=== PATIENT | male | born 1955 | race Caucasian/White ===

== ENCOUNTER → 2022-04-21 08:17 | Outpatient (CLI) | payer MEDICARE, SELFPAY ==
--- NOTE | ~2022-04-21 | CT_ITS ---
EXAMINATION: CT lung screening DATE: 04/21/2022 08:31 INDICATION: History of smoking with tobacco dependence. TECHNIQUE: Computed tomography (CT) of the chest was performed without intravenous contrast. The dose -length product was 137.41 mGy-cm. Automated exposure control and iterative reconstruction technique were employed. COMPARISON: CT chest dated 02/10/2013 FINDINGS: No thoracic lymphadenopathy. Mild atherosclerosis of the coronary arteries. Heart size norm al. No significant pleural or pericardial effusion. There are calcified granulomas of the lung and sp gm. Stable 3 mm fissural nodule on the right, image 35. Stable 3 mm right lower lobe nodule, image 97. There is a 2 mm fissural nodule on the left, likely benign. There are healed left seventh and eig hth rib fractures. There are a few clustered nodules in the perifissural aspect of the right lung reese suring 1 mm. IMPRESSION: 1. Lung-RADS category 2: Benign appearance or behavior. Continue annual screening with noncontrast lo w-dose chest CT in 12 months. Reviewed, dictated and finalized at location [facility] IMPRESSION: 1. Lung-RADS category 2: Benign appearance or behavior. Continue annual screeni ng with noncontrast low-dose chest CT in 12 months.
== END ==
PROVIDERS: PCP Internal Medicine; Visit Provider Internal Medicine
DX: Z12.2 Encounter for screening for malignant neoplasm of respiratory organs (principal); F17.210 Nicotine dependence, cigarettes, uncomplicated
CPT/HCPCS: 71271

== ENCOUNTER 2022-06-05 00:49 | Day surgery (SDC) | payer MEDICARE, SELFPAY ==
[2022-05-22 13:44] VITALS: BMI 29.9
[2022-06-05 06:45] VITALS: BP 134/76; PULSE 80; RESP 20; TEMP 36.1; O2SAT 100; BMI 29.2
[2022-06-05] MEDS: LACTATED RINGERS 1,000 ML 150 ML IV CONT (06:48)
[2022-06-05 07:00] LABS: Glucose Point of Care 102 mg/dl (65-105)
--- NOTE | 2022-06-05 07:23 | PM.HPGS ---
History of Present Illness History of Present Illness Consent: Risks, benefits, and alternatives have been discussed and questions answered. Patient agrees to proceed with procedure. Chief complaint: neoplasm screening Narrative: Mehrdad Dalal is a 67 year old male Presents for screening colonoscopy. Patient's current weight appetite and bowel movements are normal. Patient denies abdominal pain. He has had no bleeding. Family history noncontributory. Previous colonoscopy 2008 was unremarkable. Patient does have a history of Cardenas's esophagus. Underlying GE reflux appears stable. Patient does take omeprazole on daily basis. He denies any bleeding. He has had no dysphagia. Review of Systems Review of Systems: Review of systems noncontributory. [facility] Past Medical History Medical History Anxiety Depression Esophageal hernia Kidney disease Solitary lung nodule Surgical History Surgical History History of cataract extraction History of vasectomy Hx of repair of rotator cuff Family History Family History Father Family history of diabetes mellitus in first degree relative Other Carcinoma of colon Social History Social History (Updated 05/07/22 @ 08:21 by Didi Pritchett MA) Smoking packs per day: 1 Smoking cigarettes per day: 20.0 Years smoked: 30 Smoking pack-years: 30.00 Smoking status: Current every day smoker Tobacco type: cigarettes Second hand tobacco smoke exposure: Yes Alcohol intake: current Alcohol use details: drinks 2x yearly Substance use: never Substance use type: does not use Living arrangements: with family Spiritual care concerns: No Meds Home Medications and Allergies Home Medications Medication Instructions Recorded Confirmed Type alprazolam 0.5 mg tablet (Xanax) 0.5 mg PO DAILY PRN anxiety #30 09/18/20 05/22/22 Rx tabs metformin 500 mg tablet 500 mg PO BID #180 tabs 11/29/21 05/22/22 Rx amlodipine 5 mg tablet 5 mg PO DAILY #90 tabs 01/02/22 05/22/22 Rx losartan 50 mg tablet 50 mg PO DAILY #90 tabs 01/31/22 05/22/22 Rx ropinirole 1 mg tablet 1 mg PO QHS #30 tabs 05/07/22 05/22/22 Rx sodium,potassium,mag sulfates 17.5 See Rx Instructions PO .COMPLEX 05/20/22 Rx gram-3.13 gram-1.6 gram oral soln #354 mL (Suprep Bowel Prep Kit) atorvastatin 20 mg tablet 20 mg PO DAILY 05/22/22 05/22/22 History omeprazole 40 mg capsule,delayed 40 mg PO DAILY 05/22/22 05/22/22 History release sertraline 50 mg tablet 50 mg PO DAILY 05/22/22 05/22/22 History timolol maleate 0.5 % eye drops 1 drp LEFT EYE DAILY 05/22/22 05/22/22 History Allergies Allergy/AdvReac Type Severity Reaction Status Date / Time No Known Allergies Allergy Verified 06/05/22 06:44 Vital Signs Vital Signs - 24 hr 06/05/22 06:45 Temperature 96.9 F L Pulse Rate 80 Respiratory Rate 20 Blood Pressure 134/76 Pulse Oximetry 100 Oxygen Delivery Room Air Exam Narrative: Physical exam reveals patient to be alert. Vital signs stable. HEENT exam is unremarkable. Patient is anicteric. Lungs are clear to auscultation and percussion. Heart is without murmur or extra sounds. Abdomen bowel sounds are present soft nontender with no hepatosplenomegaly. Digital external rectal exam normal. Assessment and Plan Assessment and plan (1) Screening for colon cancer: Code(s): Z12.11 - Encounter for screening for malignant neoplasm of colon Status: Acute Assessment and Plan: Patient presents for screening colonoscopy. Last exam many years ago was unremarkable. Plan for screening colonoscopy at this time. (2) Cardenas's esophagus: Code(s): K22.70 - Cardenas's esophagus without dysplasia Status: Acute Assessment and Plan: Patient has a history of Cardenas's esophagus.
--- NOTE | 2022-06-05 07:48 | WPDANESEPPF ---
Anes - Initial Pre Proc Eval Procedure: Operation Date: 06/05/22 08:00 Proposed Procedures p Screening Colonoscopy - Setve Lee MD Date/Time: 06/05/22 07:48 Surgeon: Steve Lee MD Pre Op Diagnosis: neoplasm screening Patient Data Age: 67 Gender: M Height: 1.83 m Weight: 98 kg Last Vital Signs Temp 96.9 F L 06/05/22 06:45 Pulse 80 06/05/22 06:45 Resp 20 06/05/22 06:45 BP 134/76 06/05/22 06:45 Pulse Ox 100 06/05/22 06:45 O2 Del Method Room Air 06/05/22 06:45 Allergies Allergy/AdvReac Type Severity Reaction Status Date / Time No Known Allergies Allergy Verified 06/05/22 06:44 Home Medications Medication Instructions Recorded Confirmed Type alprazolam 0.5 mg tablet (Xanax) 0.5 mg PO DAILY PRN anxiety #30 09/18/20 05/22/22 Rx tabs metformin 500 mg tablet 500 mg PO BID #180 tabs 11/29/21 05/22/22 Rx amlodipine 5 mg tablet 5 mg PO DAILY #90 tabs 01/02/22 05/22/22 Rx losartan 50 mg tablet 50 mg PO DAILY #90 tabs 01/31/22 05/22/22 Rx ropinirole 1 mg tablet 1 mg PO QHS #30 tabs 05/07/22 05/22/22 Rx sodium,potassium,mag sulfates 17.5 See Rx Instructions PO .COMPLEX 05/20/22 Rx gram-3.13 gram-1.6 gram oral soln #354 mL (Suprep Bowel Prep Kit) atorvastatin 20 mg tablet 20 mg PO DAILY 05/22/22 05/22/22 History omeprazole 40 mg capsule,delayed 40 mg PO DAILY 05/22/22 05/22/22 History release sertraline 50 mg tablet 50 mg PO DAILY 05/22/22 05/22/22 History timolol maleate 0.5 % eye drops 1 drp LEFT EYE DAILY 05/22/22 05/22/22 History Laboratory Tests 06/05/22 06:58 POC Capillary Glucose 102 mg/dl mg/dl (65-105) Patient hx anesthesia problems: none Family hx anesthesia problems: none Results Review: All pre-operative results and documents have been reviewed as part of the pre-operative evaluation. [facility] Past Medical History Medical History Anxiety Depression Esophageal hernia Kidney disease Solitary lung nodule Surgical History Surgical History History of cataract extraction History of vasectomy Hx of repair of rotator cuff Family History Family History Father Family history of diabetes mellitus in first degree relative Other Carcinoma of colon Social History Social History (Updated 05/07/22 @ 08:21 by Didi Pritchett MA) Smoking packs per day: 1 Smoking cigarettes per day: 20.0 Years smoked: 30 Smoking pack-years: 30.00 Smoking status: Current every day smoker Tobacco type: cigarettes Second hand tobacco smoke exposure: Yes Alcohol intake: current Alcohol use details: drinks 2x yearly Substance use: never Substance use type: does not use Living arrangements: with family Spiritual care concerns: No Anes - Eval Final PreProcedure Day of Procedure 06/05/22 07:48 Patient weight: obese Heart: regular rate and rhythm Lungs: clear to auscultation Airway: Mallampati scale class II Neurological: alert and oriented Last oral intake: >/= 8 hours ASA classification: III Emergent: no Anesthetic plan: proceed Anesthesia type and monitoring: general GIVS and standard monitoring Results Review: All pre-operative results and documents have been reviewed as part of the pre-operative evaluation. Informed Consent: The patient's anesthetic plan and its attendant risks and benefits were discussed with the patient/family/POA. Questions were solicited and answers provided to the satisfaction of the patient/family/POA.
[2022-06-05 08:29] VITALS: BP 100/69; PULSE 70; RESP 14; O2SAT 99
[2022-06-05 08:39] VITALS: BP 117/81; PULSE 69; RESP 24; O2SAT 99
[2022-06-05 08:49] VITALS: BP 124/68; PULSE 72; RESP 18; O2SAT 99
== END 2022-06-05 09:03 | disposition home or self-care (01) ==
PROVIDERS: PCP Internal Medicine; Visit Provider Internal Medicine Gastroenterology
PROC: 0DJD8ZZ Inspection of Lower Intestinal Tract, Via Natural or Artificial Opening Endoscopic (ICD-10-PCS; CPT 45378; principal; 2022-06-05 08:00)
DX: Z12.11 Encounter for screening for malignant neoplasm of colon (principal); F41.9 Anxiety disorder, unspecified; F32.A Depression, unspecified; F17.210 Nicotine dependence, cigarettes, uncomplicated; Z79.84 Long term (current) use of oral hypoglycemic drugs; E66.9 Obesity, unspecified; Z68.29 Body mass index [BMI] 29.0-29.9, adult
CPT/HCPCS: G0121; 82948; J2704; J7120

== ENCOUNTER → 2023-05-27 11:46 | Outpatient (REF) | payer MEDICARE, SELFPAY | LOC: ANHLAB 11:46 | PROVIDERS: PCP Nurse Practitioner; Visit Provider Plastic Surgery | DX: C44.219 Basal cell carcinoma of skin of left ear and external auricular canal (principal) | CPT/HCPCS: 88305 ==

== ENCOUNTER → 2023-06-10 15:21 | Outpatient (REF) | payer MEDICARE, SELFPAY | LOC: ANHLAB 15:21 | PROVIDERS: PCP Nurse Practitioner; Visit Provider Plastic Surgery | DX: L72.0 Epidermal cyst (principal) | CPT/HCPCS: 88305 ==

== ENCOUNTER 2024-05-05 13:02 | Outpatient (CLI) | payer MEDICARE, SELFPAY ==
--- NOTE | ~2024-05-05 | CT_ITS ---
CT Scan of the Chest without Contrast: Clinical Indication: Lung cancer screening, nicotine dependence Technique: Contiguous sections were acquired throughout the chest without intravenous contrast. Dose reduction technique was used on this scan by utilizing automated exposure control and iterative recon struction technique. The dose-length product (DLP) was 156.02 mGy-cm. COMPARISON: 04/21/2022 Findings: There is no evidence of any significant mediastinal, hilar or axillary lymphadenopathy. Mild coronary artery calcification present. There is no evidence of pleural or pericardial effusion. Small calcified granulomas noted. Images through the upper abdomen reveal no abnormalities. Impression: Lung RADS 2: Benign appearance. 12 month follow-up screening CT advised. Reviewed, dictated and finalized at location . Impression: Lung RADS 2: Benign appearance. 12 month follow-up screening CT advised.
== END 2024-05-05 13:03 | disposition home or self-care (01) ==
LOC: MICIMG 13:03
PROVIDERS: PCP Nurse Practitioner Family; Visit Provider Nurse Practitioner Family
DX: Z12.2 Encounter for screening for malignant neoplasm of respiratory organs (principal); Z87.891 Personal history of nicotine dependence
CPT/HCPCS: 71271